=== PATIENT | female | born 1950 | race Caucasian/White ===

== ENCOUNTER 2018-05-06 10:44 | Emergency (ER) | payer SELFPAY ==
[~2018-05-06] VITALS: Wt 88.2 kg
[2018-05-06] MEDS ORDERED: ACETAMINOPHEN 325 MG TAB PO ONE (11:30)
[2018-05-06] MEDS ORDERED: ACET500C5 PO (12:37)
[2018-05-06] MEDS ORDERED: CEPH-443 PO (12:37)
--- NOTE | 2018-05-06 12:46 | ERD ---
ER Documentation Chief Complaint Chief Complaint BODYACHES, KNEE PAIN X1 WEEK HPI 68-year-old female presents with multiple complaints. She has had vomiting and diarrhea over the weekend which is currently resolved. She has body aches and bitemporal headache. She denies fevers. Denies urinary complaints. She is also had right knee pain over the last 1-2 weeks which started worsening recently but she has had this for some time. She does not have a primary care doctor. She does however take lisinopril for high blood pressure. ROS All systems reviewed and are negative except as per history of present illness. Medications Home Meds Active Scripts Cephalexin* (Keflex*) 500 Mg Capsule, 500 MG PO QID for 5 Days, CAP Prov:BRANDAN MEZA MD 05/06/18 Acetaminophen* (Tylophen*) 500 Mg Capsule, 1 CAP PO Q6H PRN for PAIN AND OR ELEVATED TEMP, #30 CAP Prov:BRANDAN MEZA MD 05/06/18 Allergies Allergies: Coded Allergies: No Known Allergy (Unverified , 05/06/18) PMhx/Soc Medical and Surgical Hx: pt denies Surgical Hx Hx Cardiac Disorders: Yes (htn) Hx Miscellaneous Medical Probl: Yes (dm) Hx Alcohol Use: No Hx Substance Use: No Hx Tobacco Use: No Smoking Status: Never smoker FmHx Family History: No diabetes, No coronary disease, No other Physical Exam Vitals Vital Signs Date Temp Pulse Resp B/P (MAP) Pulse Ox O2 O2 Flow FiO2 Time Delivery Rate 05/06/18 88 18 128/62 99 13:15 (84) 05/06/18 99.3 107 16 183/85 96 10:51 (117) Physical Exam Const: No acute distress Head: Atraumatic Eyes: Normal Conjunctiva ENT: Normal External Ears, Nose and Mouth. Neck: Full range of motion. No meningismus. Resp: Clear to auscultation bilaterally Cardio: Regular rate and rhythm, no murmurs Abd: Soft, non tender, non distended. Normal bowel sounds Skin: No petechiae or rashes Back: No midline or flank tenderness Ext: No cyanosis, or edema. Mild generalized swelling without warmth, erythema, effusion of the right knee. No deformities. No calf swelling or Homans sign. No restricted range of motion or weakness. Neur: Awake and alert Psych: Normal Mood and Affect Result Diagram: 05/06/18 1132 05/06/18 1132 Results 24 hrs Laboratory Tests Test 05/06/18 11:32 White Blood Count 6.9 10^3/ul Red Blood Count 4.89 10^6/ul Hemoglobin 13.2 g/dl Hematocrit 41.2 % Mean Corpuscular Volume 84.3 fl Mean Corpuscular Hemoglobin 27.0 pg Mean Corpuscular Hemoglobin Concent 32.0 g/dl Red Cell Distribution Width 15.8 % Platelet Count 260 10^3/UL Mean Platelet Volume 9.6 fl Immature Granulocytes % 0.100 % Neutrophils % 68.1 % Lymphocytes % 21.3 % Monocytes % 9.9 % Eosinophils % 0.3 % Basophils % 0.3 % Nucleated Red Blood Cells % 0.0 /100WBC Immature Granulocytes # 0.010 10^3/ul Neutrophils # 4.7 10^3/ul Lymphocytes # 1.5 10^3/ul Monocytes # 0.7 10^3/ul Eosinophils # 0.0 10^3/ul Basophils # 0.0 10^3/ul Nucleated Red Blood Cells # 0.0 10^3/ul Urine Color YELLOW Urine Clarity CLEAR Urine pH 6.0 Urine Specific Dewitt 1.005 Urine Ketones NEGATIVE mg/dL Urine Nitrite POSITIVE mg/dL Urine Bilirubin NEGATIVE mg/dL Urine Urobilinogen NEGATIVE mg/dL Urine Leukocyte Esterase TRACE Demar/ul Urine Microscopic RBC 0 /HPF Urine Microscopic WBC 7 /HPF Urine Bacteria MANY /HPF Urine Mucus FEW /HPF Urine Hemoglobin 1+ mg/dL Urine Glucose NEGATIVE mg/dL Urine Total Protein NEGATIVE mg/dl Sodium Level 141 mmol/L Potassium Level 4.6 mmol/L Chloride Level 101 mmol/L Carbon Dioxide Level 29 mmol/L Anion Gap 11 Blood Urea Nitrogen 13 mg/dl Creatinine 0.51 mg/dl Est Glomerular Filtrat Rate mL/min > 60 mL/min Glucose Level 116 mg/dl Calcium Level 9.1 mg/dl Current Medications Medications Dose Sig/Thiago Start Time Status Last (Trade) Ordered Route PRN Stop Time Admin Dose Reason Admin 650 mg ONCE ONCE 05/06/18 DC 05/06/18 Acetaminophen PO 11:30 11:30 (Tylenol 05/06/18 11:31 Tab) Cephalexin 500 mg ONCE ONCE 05/06/18 DC 05/06/18 (Keflex) PO 13:00 13:06 1/14/19 13:01 Procedures/MDM Urine shows white blood cells, leukocyte esterase and nitrates. X-ray right knee 3V Interpreted by me: Bones: No fracture Joints: No dislocation Foreign body: None. Impression-significant tricompartmental arthritis or degenerative changes of the right knee. No acute findings of fracture dislocation. Patient was given Tylenol and Keflex here in the ED. CBC and basic metabolic panel normal. Patient presents with multiple complaints. She has signs and symptoms of resolving vomiting diarrhea suggestive of viral gastroenteritis resolving. She has no signs of abdominal pain or ill appearance. She has signs of UTI and will treat for this. She has right knee pain with signs of osteoarthritis without evidence of acute etiology. She will be treated with Tylenol, Keflex, and her primary care for further evaluation treatment, as well as return precautions for fevers, abdominal pain, cough, shortness breath, new worsening symptoms as directed and aftercare instructions. The patient was stable with no new complaints during the ER course. Clinically, there is no current evidence to suggest meningitis, sepsis, acute abdomen, pneumonia, stroke, acute coronary syndrome, pulmonary embolism, aortic dissection or any other emergent condition appearing to require further evaluation or hospitalization. Patient counseled regarding my diagnostic impression and care plan. Prior to discharge all questions answered. Pt agrees with treatment plan and understands strict return precautions. Pt is instructed to follow up with primary care provider within 24- 48 hours. Precautionary instructions provided including instructions to return to the ER if not improving or for any worsening or changing symptoms or concerns. Departure Diagnosis: Primary Impression: UTI (urinary tract infection) Urinary tract infection type: acute cystitis Hematuria presence: without hematuria Qualified Codes: N30.00 - Acute cystitis without hematuria Additional Impressions: Nausea vomiting and diarrhea Knee pain Chronicity: acute Laterality: right Qualified Codes: M25.561 - Pain in right knee Condition: Stable Patient Instructions: Understanding Urinary Tract Infections (UTIs), Osteoarthritis [facility] Usted se crook hecho un examen mdico de control que le indica que no est en jackie condicin que requiera tratamiento urgente en el Departamento de Emergencia. Un estudio ms profundo y el tratamiento de orantes condicin pueden esperar sin ningn riesgo hasta que usted sea atendida/o en el consultorio de orantes mdico o jackie clnica. Es responsabilidad suya arreglar jackie devin para el seguimiento del ling. MANEJO DE CONDICIONES NO URGENTES EN EL FUTURO 1) Si usted tiene un mdico de atencin primaria: Usted debera llamar a orantes mdico de atencin primaria antes de venir al departamento de emergencia. Despus de las horas de consultorio, orantes doctor o orantes asociado/a est disponible por telfono. El mdico o enfermero de nataliya en el servicio telefnico puede asesorarle por charlene medio para atender el problema, o ling contrario se puede programar jackie devin. 2) Si usted no tiene un mdico de atencin primaria: Llame al mdico o clnica de referencia que aparece abajo lily las horas de consultorio para hacer jackie devin para que le vean. CLINICAS: [facility] [phone] [facility] [phone] [facility] [phone] [address] [facility]. [facility] [phone] [facility]. [place] [id number] [phone] [facility]. [phone] [address] Additional Instructions: x-ray de rodilla tiene artritis. orine dice tiene infeccion y vamos a tratar . otro examines normal hoy. Cheque otro vez con orantes doctor primario en el proximo sanchez or regresa para mas o nueva simptomas. BRANDAN MEZA MD May 06, 2018 12:46
[2018-05-06] MEDS ORDERED: CEPHALEXIN 500 MG CAP PO ONE (13:00)
[2018-05-06 13:15] VITALS: BP 128/62; PULSE 88; RESP 18
== END 2018-05-06 13:16 | disposition home or self-care (01) ==
LOC: FTE 10:44
DX: N30.00 Acute cystitis without hematuria (principal); I10 Essential (primary) hypertension; E11.9 Type 2 diabetes mellitus without complications; R11.2 Nausea with vomiting, unspecified; R19.7 Diarrhea, unspecified
CPT/HCPCS: 36415; 73562; 80048; 81001; 85025